=== PATIENT | male | born 1955 | race Caucasian/White ===

== ENCOUNTER 2018-03-29 12:24 | Inpatient (IN) | payer SELFPAY ==
[2018-03-29] VITALS (16 sets, daily range): BP systolic 101–142; BP diastolic 55–90
[~2018-03-29] VITALS: Ht 185.4 cm; Wt 127.5 kg
--- NOTE | 2018-03-29 12:25 | NUR ---
SOB X 1 WEEK, ABDOMINAL DISTENSION, PATIENT HOOKED UP ON MONITOR. IV INSERTED. MD AT BEDSIDE.
[2018-03-29 12:55] LABS: BASOPHILS % (AUTO) 0.4 % (0.0-2.0); EOSINOPHILS % (AUTO) 0.1 % (0.0-6.0); HEMATOCRIT 54 % (39-51); HEMOGLOBIN 17.7 g/dL (13.5-17.5); LYMPHOCYTES # (AUTO) 1.7 /CMM (0.8-4.8); LYMPHOCYTES % (AUTO) 20.4 % (20.0-44.0); MEAN CORPUSCULAR HGB CONC 33 g/dl (31.0-36.0); MEAN CORPUSCULAR VOLUME 100 fL (80-96); MONOCYTES # (AUTO) 0.8 /CMM (0.1-1.30); MONOCYTES % (AUTO) 9.8 % (2.0-12.0); NEUTROPHILS # (AUTO) 5.8 /CMM (1.8-8.9); NEUTROPHILS % (AUTO) 69.3 % (43.0-81.0); PLATELET COUNT (AUTO) 285 /CMM (150-450); RED BLOOD CELL COUNT(AUTO) 5.39 MIL/uL (4.5-6.0); WHITE BLOOD COUNT (AUTO) 8.4 K/uL (4.3-11.0)
[2018-03-29] MEDS ORDERED: DILTIAZEM HCL 25 MG IV ONE (12:58)
[2018-03-29] MEDS ORDERED: DILTIAZEM HCL 25 MG IV IV ONE (13:00)
[2018-03-29 13:09] LABS: CREATININE 2.3 mg/dL (0.6-1.3); POTASSIUM 4.9 mmol/L (3.5-5.1)
[2018-03-29 13:22] LABS: ALBUMIN 3.7 g/dL (3.4-5.0); BILIRUBIN,DIRECT 0.9 mg/dL (0.0-0.2); BILIRUBIN,TOTAL 2.5 mg/dL (0.2-1.0); TOTAL PROTEIN, SERUM 7.3 g/dL (6.4-8.2)
--- NOTE | 2018-03-29 13:32 | NUR ---
called for icu bed
[2018-03-29 13:34] LABS: APPEARANCE,URINE Slightly Cloudy (CLEAR); BILIRUBIN,URINE MODERATE (NEGATIVE); BLOOD, URINE Small Ery/uL (NEGATIVE); COLOR,URINE Dark (YELLOW); KETONES,URINE Negative (NEGATIVE); LEUKOCYTE ESTERASE ,URINE Negative (NEGATIVE); NITRITE, URINE Negative (NEGATIVE); PH,URINE 5.5 (5.0-8.0); PROTEIN,URINE 100 mg/dl (NEGATIVE); UGLUCOSE Negative (NEGATIVE)
[2018-03-29 13:46] LABS: BACTERIA,URINE None seen /HPF (None Seen); SQUAMOUS EPITHELIAL CELL,UR Few /HPF (None Seen); WBC,URINE 0-3 /HPF (0-3)
[2018-03-29 13:47] LABS: URINE AMORPHOUS URATE Few /HPF (None Seen)
[2018-03-29 13:58] LABS: ACETAMINOPHEN 0 ug/ml (10-30)
[2018-03-29] MEDS ORDERED: PIPERACILLIN /TAZOBACTAM 2.25 G in IV D5W 50 ML IV ONE (14:00)
[2018-03-29] MEDS ORDERED: DILTIAZEM HCL IV 125 MG in IV D5W 100 ML IV PRN (14:00)
[2018-03-29 14:14] LABS: SERUM AMMONIA 17 umol/L (11-32)
[2018-03-29] MEDS ORDERED: FUROSEMIDE 40 MG/4 ML VIAL IV ONE (14:30)
[2018-03-29] MEDS ORDERED: FUROSEMIDE 40 MG/4 ML VIAL ONE (14:42)
[2018-03-29 14:55] LABS: ABG OXYGEN SATURATION 93.7 % (92.0-98.5); ABG PCO2 29.7 mmHg (35.0-45.0); ABG PH 7.421 (7.350-7.450); ABG PO2 76.7 mmHg (75.0-100.0); AaDO2 73.5 mmHg; COHb 1.4 % (0.5-1.5); MetHb 0.5 % (0.0-1.5); O2Hb 91.9 % (94.0-97.0); SITE, ABG Right Radial; VENT MODE, BG 3L NC
--- NOTE | 2018-03-29 15:12 | NUR ---
PATIENT A/OX4, ON CARDIZEM DRIP 15MG/HR AT THIS TIME. HR SHOWS 120-130S. NO DISTRESS NOTED AT THIS TIME. ON O2 AT 3LPM VIA NC WITH SPO2 OF 98%.
--- NOTE | 2018-03-29 15:16 | NUR ---
ICU BED 261
--- NOTE | 2018-03-29 15:33 | NUR ---
US GUIDED PARACENTESIS BEING DONE AT THIS TIME BY RADIOLOGIST. CARDIZEM LOWERED TO 10MG/HR DUE TO BP OF 81/36. RECHECKED BP SHOWS 115/66. PATIENT A/OX4, NO DISTRESS NOTED.
--- NOTE | 2018-03-29 15:56 | NUR ---
GAVE REPORT TO HARRY GUERRERO. 2ND PIV INSERTED ON RIGHT AC G18
--- NOTE | 2018-03-29 17:00 | NUR ---
5160CC DISCHARGE OUTPUT FROM PARACENTESIS. PATIENT TRANSFERRED TO ICU ROOM 261. VIA ACLS PROTOCOL.
--- NOTE | 2018-03-29 17:43 | NUR ---
3D DESIGNER. ADMISSION. PT BEING ADMITTED FROM ER VIA [facility]IR WITH RVR, CHF. .PT IS AWAKE, ALERT, FOLLOW COMMANDS. SWEATBAND MAKER SHOWING AFIB OXYGEN 3L VIA NASAL CANNULA. SAT 98%. NO ACUTE DISTRESS NOTED. FC PATENT. IV RT AND LT AC 18G. CARDIZEM 10MG/H HOB ELEVATED. LEG 4+ EDEMA NOTED.
[2018-03-29] MEDS: DILTIAZEM HCL IV 125 MG in IV D5W 100 ML IV PRN (18:29)
[2018-03-29] MEDS ORDERED: ACETAMINOPHEN 325 MG TABLET PO PRN (18:30)
[2018-03-29] MEDS ORDERED: ZOLPIDEM TARTRATE 5 MG TABLET PO PRN (18:30)
[2018-03-29] MEDS ORDERED: Z GUARD REMEDY 2 OZ OINT TP PRN (18:30)
[2018-03-29] MEDS ORDERED: HYDROCODONE/APAP 5/325MG 1 EACH TABLET PO PRN (18:30)
[2018-03-29] MEDS ORDERED: MAGNESIUM HYDROXIDE 30 ML UDC PO PRN (18:30)
[2018-03-29] MEDS ORDERED: ONDANSETRON HCL/PF 4 MG/2 ML VIAL IVP PRN (18:30)
[2018-03-29] MEDS ORDERED: FUROSEMIDE 40 MG TABLET PO SCH (19:00)
[2018-03-29] MEDS: SPIRONOLACTONE 25 MG TABLET PO SCH (20:25)
[2018-03-29] MEDS: HEPARIN SODIUM, PORCINE 5000 UNITS/1 ML VIAL SQ SCH (20:26)
[2018-03-30] VITALS (39 sets, daily range): BP systolic 54–161; BP diastolic 26–116
[2018-03-30] MEDS ORDERED: DILTIAZEM HCL 25 MG IV ONE ×2 (01:30→01:33)
[2018-03-30] MEDS: DILTIAZEM HCL IV 125 MG in IV D5W 100 ML IV PRN (02:56)
--- NOTE | 2018-03-30 03:06 | NUR ---
CUSTOMER ACCOUNTS ADVISOR. AM CARE, ORAL CARE, BED BATH GIVEN. LINEN CHANGED, REMAINING SAME IV CARDIZEM 5MG/H. PT REFUSED OXYGEN. SAT 95%. NO ACUTE DISTRESS NOTED. REPAIRER RECREATIONAL VEHICLE SHOWING AFIB. HOB ELEVATED, FC PATENT. URINE DRAINING. AFEBRILE. WILL CONTINUE TO MONITOR VITALS.
[2018-03-30 04:50] LABS: BASOPHILS % (AUTO) 0.4 % (0.0-2.0); EOSINOPHILS % (AUTO) 0.2 % (0.0-6.0); HEMATOCRIT 47 % (39-51); HEMOGLOBIN 15.4 g/dL (13.5-17.5); LYMPHOCYTES # (AUTO) 1.3 /CMM (0.8-4.8); LYMPHOCYTES % (AUTO) 17.2 % (20.0-44.0); MEAN CORPUSCULAR HGB CONC 33 g/dl (31.0-36.0); MEAN CORPUSCULAR VOLUME 99 fL (80-96); MONOCYTES # (AUTO) 0.9 /CMM (0.1-1.30); MONOCYTES % (AUTO) 11.3 % (2.0-12.0); NEUTROPHILS # (AUTO) 5.4 /CMM (1.8-8.9); NEUTROPHILS % (AUTO) 70.9 % (43.0-81.0); PLATELET COUNT (AUTO) 230 /CMM (150-450); RED BLOOD CELL COUNT(AUTO) 4.75 MIL/uL (4.5-6.0); WHITE BLOOD COUNT (AUTO) 7.6 K/uL (4.3-11.0)
[2018-03-30 05:06] LABS: CALCIUM, SERUM 8.9 mg/dL (8.5-10.1); CREATININE 2.4 mg/dL (0.6-1.3); MAGNESIUM 2.3 mg/dL (1.8-2.4); PHOSPHORUS 6.4 mg/dL (2.5-4.9); POTASSIUM 4.7 mmol/L (3.5-5.1)
--- NOTE | 2018-03-30 08:35 | NUR ---
received pt from steward/stewardess night, a/o 4, A fib controlled, on Cardizem drip at 3mg/hr, RA, lungs partially congested/diminished, BLLE edema and cellulitis, tolerates diet, f/c OK output, v/s stable, no pain, pt turns and repositions by himself.
[2018-03-30] MEDS: SPIRONOLACTONE 25 MG TABLET PO SCH (08:55)
[2018-03-30] MEDS: HEPARIN SODIUM, PORCINE 5000 UNITS/1 ML VIAL SQ SCH ×2 (08:57→20:52)
[2018-03-30] MEDS: CARVEDILOL 3.125 MG TABLET PO SCH ×2 (09:08→20:52)
[2018-03-30 13:54] LABS: APPEARANCE,URINE CLEAR (CLEAR); BILIRUBIN,URINE NEGATIVE (NEGATIVE); BLOOD, URINE 3+ Ery/uL (NEGATIVE); COLOR,URINE YELLOW (YELLOW); KETONES,URINE NEGATIVE (NEGATIVE); LEUKOCYTE ESTERASE ,URINE NEGATIVE (NEGATIVE); NITRITE, URINE NEGATIVE (NEGATIVE); PROTEIN,URINE TRACE mg/dl (NEGATIVE); UGLUCOSE NEGATIVE (NEGATIVE); UROBILINOGEN,URINE 0.2 EU/dL (0.2)
[2018-03-30 14:23] LABS: CREATININE, URINE 126.3 MG/DL (30.0-125.0); URINE SODIUM, RANDOM < 5 mmol/l (40-220); URINE TOTAL PROTEIN 33.2 mg/dL (0-11.9)
[2018-03-30 15:55] LABS: BACTERIA,URINE Rare /HPF (None Seen); SQUAMOUS EPITHELIAL CELL,UR Rare /HPF (None Seen); URIC ACID CRYSTALS,URINE Moderate /HPF (None Seen); WBC,URINE 0-2 /HPF (0-3)
--- NOTE | 2018-03-30 16:30 | NUR ---
pt is resting in the bed, v/s stable, no pain.
[2018-03-30 17:16] LABS: EOSINOPHIL,URINE None Seen
--- NOTE | 2018-03-30 19:30 | NUR ---
RN NOTES ONLY PROPERTY/BELONGINGS THAT CAME WITH PT TO C[facility] 112-1 WAS EYE GLASSES, CELL PHONE AND WHOLESALE AND RETAIL MERCHANT. CHARGE NURSE CHRIS MADE AWARE.GELATIN MAKER UTILITY CHECKED ICU FOR THE REST OF BELONGING AND WAS TOLD TO CALL FAMILY TO SEE IF FAMILY TOOK BELONGS HOME. CALL WAS PLACE TO FAMILY, WITH NO RESPONSE.
--- NOTE | 2018-03-30 20:00 | NUR ---
RN INITIAL NOTES RECEIVED REPORT FROM [facility]. PT CAME FROM THE ICU. PT DOWN GRADED TO MS. PT A/OX4, ROBI IN PLACE. PT HAS A #18G L AND R AC IV S/L. GWEN LLE EDEMA. ALL NEEDS ANTICIPATED AND MET. ALL SAFETY PRECAUTIONS TAKEN. BED IN LOW LOCKED POSITION, CALL LIGHT WITH IN REACH. WILL CONT MONITOR.
[2018-03-31 04:00] VITALS: BP 87/60
--- NOTE | 2018-03-31 06:35 | NUR ---
RN CLOSING NOTES NO CHANGE IN PTS CONDITION OVER NIGHT. WILL ENDORSE TO AM RN.
[2018-03-31 08:00] VITALS: BP 98/69
[2018-03-31 08:06] LABS: ALBUMIN 2.9 g/dL (3.4-5.0); BILIRUBIN,TOTAL 2.4 mg/dL (0.2-1.0); CALCIUM, SERUM 8.3 mg/dL (8.5-10.1); CREATININE 3.2 mg/dL (0.6-1.3); MAGNESIUM 2.5 mg/dL (1.8-2.4); PHOSPHORUS 7.1 mg/dL (2.5-4.9); POTASSIUM 4.8 mmol/L (3.5-5.1); TOTAL PROTEIN, SERUM 5.4 g/dL (6.4-8.2)
[2018-03-31 08:12] LABS: BASOPHILS % (AUTO) 0.1 % (0.0-2.0); HEMATOCRIT 48 % (39-51); HEMOGLOBIN 16.1 g/dL (13.5-17.5); LYMPHOCYTES # (AUTO) 1.3 /CMM (0.8-4.8); LYMPHOCYTES % (AUTO) 12.9 % (20.0-44.0); MEAN CORPUSCULAR HGB CONC 34 g/dl (31.0-36.0); MEAN CORPUSCULAR VOLUME 98 fL (80-96); MONOCYTES # (AUTO) 0.8 /CMM (0.1-1.30); MONOCYTES % (AUTO) 8.6 % (2.0-12.0); NEUTROPHILS # (AUTO) 7.7 /CMM (1.8-8.9); NEUTROPHILS % (AUTO) 78.4 % (43.0-81.0); PLATELET COUNT (AUTO) 211 /CMM (150-450); RED BLOOD CELL COUNT(AUTO) 4.89 MIL/uL (4.5-6.0); WHITE BLOOD COUNT (AUTO) 9.8 K/uL (4.3-11.0)
[2018-03-31 08:30] VITALS: BP 98/69
[2018-03-31] MEDS: HEPARIN SODIUM, PORCINE 5000 UNITS/1 ML VIAL SQ SCH ×2 (08:35→20:57)
[2018-03-31] MEDS: SPIRONOLACTONE 25 MG TABLET PO SCH (08:35)
[2018-03-31] MEDS: CARVEDILOL 3.125 MG TABLET PO SCH ×2 (08:36→20:55)
[2018-03-31 09:59] LABS: BILIRUBIN,DIRECT 1.1 mg/dL (0.0-0.2)
[2018-03-31 12:00] VITALS: BP 102/68
--- NOTE | 2018-03-31 15:59 | NUR ---
MS RN NOTES PATIENT SEEN AND EXAMINED BY ESEQUIEL BRENNAN NP. WITH NEW ORDER TO DC ROSENBAUM CATHETER. PATIENT MADE AWARE AND VERBALIZED UNDERSTANDING. ORDER NOTED AND CARRIED OUT. ROSENBAUM CATHETER REMOVED PER PROTOCOL. PATIENT TOLERATED PROCEDURE WELL. DENIES ANY PAIN OR DISCOMFORT. NO BLEEDING NOTED. WILL CONTINUE TO MONITOR
--- NOTE | 2018-03-31 18:47 | NUR ---
MS RN NOTES PATIENT RESTING INSIDE ROOM. AWAKE, ALERT AND ORIENTED, VERBALLY RESPONSIVE AND RESPONDS TO VERBAL AND TACTILE STIMULI. BREATHING EVEN AND UNLABORED. DENIES ANY PAIN OR DISCOMFORT AT THIS TIME. PATIENT VOIDED THIS AFTERNOON. NO FEELING OF BLADDER FULLNESS OR URINARY URGENCY. PATIENT KEPT CLEAN, DRY AND COMFORTABLE. WILL ENDORSE TO INCOMING SHIFT FOR NEY. BED LOCKED AND IN LOW POSITION. BILATERAL UPPER SIDE RAILS UP AND LOCKED. CALL LIGHT WITHIN EASY REACH
[2018-03-31 20:00] VITALS: BP 125/79
--- NOTE | 2018-03-31 20:00 | NUR ---
RN INITIAL NOTES PATIENT RECEIVED RESTING INSIDE ROOM. AWAKE, ALERT AND ORIENTED, VERBALLY RESPONSIVE AND RESPONDS TO VERBAL AND TACTILE STIMULI. BREATHING EVEN AND UNLABORED. NO ACUTE DISTRESS AT THIS TIME. DENIES ANY PAIN OR DISCOMFORT. ROSENBAUM CATHETER IN PLACE AND DRAINING WELL WITH YELLOW URINE OUTPUT NOTED. IV INTACT AND PATENT. WILL CONTINUE TO MONITOR. BED LOCKED AND IN LOW POSITION. BILATERAL UPPER SIDE RAILS UP AND LOCKED. CALL LIGHT WITHIN EASY REACH
[2018-04-01 04:00] VITALS: BP 84/55
--- NOTE | 2018-04-01 06:38 | NUR ---
RN CLOSING NOTES NO CHANGE IN PTS CONDITION OVER NIGHT. WILL ENDORSE TO AM RN.
--- NOTE | 2018-04-01 07:15 | NUR ---
RN INITIAL NOTES PATIENT RECEIVED RESTING IN BED. AWAKE, ALERT AND ORIENTED, VERBALLY RESPONSIVE AND RESPONDS TO VERBAL AND TACTILE STIMULI. BREATHING EVEN AND UNLABORED. NO ACUTE DISTRESS AT THIS TIME. DENIES ANY PAIN OR DISCOMFORT. IV INTACT AND PATENT. WILL CONTINUE TO MONITOR. BED LOCKED AND IN LOW POSITION. BILATERAL UPPER SIDE RAILS UP AND LOCKED. CALL LIGHT WITHIN EASY REACH, WILL CONTINUE TO MONITOR
[2018-04-01 07:17] LABS: BASOPHILS % (AUTO) 0.2 % (0.0-2.0); EOSINOPHILS % (AUTO) 0.3 % (0.0-6.0); HEMATOCRIT 50 % (39-51); HEMOGLOBIN 16.6 g/dL (13.5-17.5); LYMPHOCYTES # (AUTO) 1.5 /CMM (0.8-4.8); LYMPHOCYTES % (AUTO) 19.4 % (20.0-44.0); MEAN CORPUSCULAR HGB CONC 33 g/dl (31.0-36.0); MEAN CORPUSCULAR VOLUME 98 fL (80-96); MONOCYTES # (AUTO) 0.7 /CMM (0.1-1.30); MONOCYTES % (AUTO) 9.1 % (2.0-12.0); NEUTROPHILS # (AUTO) 5.6 /CMM (1.8-8.9); PLATELET COUNT (AUTO) 201 /CMM (150-450); RED BLOOD CELL COUNT(AUTO) 5.13 MIL/uL (4.5-6.0); WHITE BLOOD COUNT (AUTO) 7.9 K/uL (4.3-11.0)
[2018-04-01 07:48] LABS: ALBUMIN 2.8 g/dL (3.4-5.0); BILIRUBIN,TOTAL 1.7 mg/dL (0.2-1.0); CALCIUM, SERUM 8.7 mg/dL (8.5-10.1); CREATININE 3.2 mg/dL (0.6-1.3); MAGNESIUM 2.5 mg/dL (1.8-2.4); PHOSPHORUS 6.9 mg/dL (2.5-4.9); POTASSIUM 4.5 mmol/L (3.5-5.1); TOTAL PROTEIN, SERUM 5.4 g/dL (6.4-8.2)
[2018-04-01 08:00] VITALS: BP_SYST 85; BP_SYST 90; BP_DIAS 60; BP_DIAS 64
[2018-04-01] MEDS: CARVEDILOL 3.125 MG TABLET PO SCH (09:00)
[2018-04-01] MEDS: HEPARIN SODIUM, PORCINE 5000 UNITS/1 ML VIAL SQ SCH (09:53)
[2018-04-01] MEDS ORDERED: CARV3.122 PO (14:58)
[2018-04-01] MEDS ORDERED: FURO-144 PO (14:58)
[2018-04-01 16:00] VITALS: BP 94/67
--- NOTE | 2018-04-01 16:00 | NUR ---
RN NOTES PATIENT SITTING UP IN BED. AWAKE, ALERT AND ORIENTED, VERBALLY RESPONSIVE. BREATHING EVEN AND UNLABORED. NO ACUTE DISTRESS AT THIS TIME. DENIES ANY PAIN OR DISCOMFORT. IV INTACT AND PATENT. WILL CONTINUE TO MONITOR PT FOR DISCHARGE, HAS MISSING BELONGINGS AND NO CLOTHES AT THIS TIME, WORKING WITH STAFF TO OBTAIN BELONGINGS CALLED ALL UNITS PT WAS ON AND NONE FOUND. DAMPENER AND HOURLY CAREGIVER AWARE AND WILL CONTINUE TO ASSIST PT TO HAVE CLOTHES DONATED AND WILL CONTINUE TO SEARCH FOR BELONGINGS PT CONTINUES TO INSIST TO FIND CLOTHES AND BELONGINGS WILL CONTINUE TO SEARCH. CALL LIGHT WITHIN EASY REACH, WILL CONTINUE TO MONITOR AND PLAN FOR DISCHARGE ORDERED
--- NOTE | 2018-04-01 18:40 | NUR ---
RN NOTES PATIENT SITTING UP IN BED. AWAKE, ALERT AND ORIENTED, VERBALLY RESPONSIVE. BREATHING EVEN AND UNLABORED. NO ACUTE DISTRESS AT THIS TIME. DENIES ANY PAIN OR DISCOMFORT. IV REMOVED WITH NO ASE NOTED NO BLEEDING AT THIS TIME. WILL CONTINUE TO MONITOR PT FOR DISCHARGE, HAS MISSING BELONGINGS AND NO CLOTHES AT THIS TIME, WORKING WITH STAFF TO OBTAIN BELONGINGS CALLED ALL UNITS PT WAS ON AND NONE FOUND. SUPERVISOR CUTTING AND SEWING ROOM AND TEXTILE EXAMINER AWARE AND WILL CONTINUE TO ASSIST PT TO HAVE CLOTHES DONATED AND WILL CONTINUE TO SEARCH FOR BELONGINGS PT CONTINUES TO INSIST TO FIND CLOTHES AND BELONGINGS WILL CONTINUE TO SEARCH. EXPLAINED TO PATIENT AND GAVE HOSPITAL INFORMATION TO CALL BACK PT AGREES TO GO WITH DONATED CLOTHES, ALL DISCHARGE INSTRUCTIONS AND PRESCRIPTION PROVIDED WITH NOTED VERBAL UNDERSTANDING INFORMED PT TO GO TO PRIMARY CARE PHYSICIAN AND TAKE BP AT HOME WELL HEART RATE. PATIENT ASSISTED TO LOBBY BY [facility] VIA WHEEL CHAIR IN NO DISTRESS ADMIN TO FOLLOW UP REGARDING MISSING BELONGINGS PLEASE SEE PAPER CHART Addendum: 04/06/18 at 1000 by CATHY MOREL RN RN NOTES PT REFUSED PICTURES OF SKIN, STATES " I JUST WANT MY THINGS" REFERRING TO BELONGINGS
[2018-04-01 20:07] LABS: PTH, INTACT 140 pg/mL (15-65)
[2018-04-04 06:11] LABS: *SPE A/G RATIO 1.3 (0.7-1.7); *SPE ALBUMIN 2.9 g/dL (2.9-4.4); *SPE ALPHA-1-GLOBULIN 0.3 g/dL (0.0-0.4); *SPE ALPHA-2-GLOBULIN 0.5 g/dL (0.4-1.0); *SPE BETA GLOBULIN 0.9 g/dL (0.7-1.3); *SPE GLOBULIN, TOTAL 2.2 g/dL (2.2-3.9); *SPE M-SPIKE Not Observed g/dL (Not Observed); *SPEGAMMA GLOBULIN 0.5 g/dL (0.4-1.8)
== END 2018-04-01 18:35 | disposition home or self-care (01) | DRG 441 ==
LOC: ER 12:26 → ICU 15:43 → MEDSG1 03-30 18:34 → TELE-TD 03-30 18:48 → MEDSG1 03-30 18:53
PROVIDERS: ADMIT Nurse Practitioner Acute Care; ATTEND Nurse Practitioner Acute Care
PROC: 0W9G3ZZ Drainage of Peritoneal Cavity, Percutaneous Approach (ICD-10-PCS; principal; 2018-03-29)
DX: K72.90 Hepatic failure, unspecified without coma (principal); J96.01 Acute respiratory failure with hypoxia; I50.33 Acute on chronic diastolic (congestive) heart failure; N17.0 Acute kidney failure with tubular necrosis; K76.7 Hepatorenal syndrome; E87.2 Acidosis; E87.1 Hypo-osmolality and hyponatremia; G72.1 Alcoholic myopathy; K70.31 Alcoholic cirrhosis of liver with ascites; I48.91 Unspecified atrial fibrillation; N18.9 Chronic kidney disease, unspecified; F10.11 Alcohol abuse, in remission; Y90.0 Blood alcohol level of less than 20 mg/100 ml; R73.03 Prediabetes
CPT/HCPCS: 36415; 36600; 71045-TC; 76942-TC; 80048-TC; 80053-TC; 80061-TC; 80074; 80076-TC; 80305; 81000-TC; 82140-TC; 82248-TC; 82550-TC; 82570-TC; 82803-TC; 83605-TC; 83735-TC; 83880; 83970; 84100-TC; 84155; 84155-TC; 84165; 84300-TC; 84439-TC; 84443-TC; 84484-TC; 85025-TC; 85730-TC; 87040-TC; 87081-TC; 93307-TC; G0378; G0480; J1644; J1940; J2543; J3490; J7060